=== PATIENT | female | born 1985 | race Caucasian/White ===

== ENCOUNTER 2022-11-28 12:48 | Outpatient (CLI) | payer OTHER, SELFPAY ==
--- NOTE | ~2022-11-28 | MR_ITS ---
EXAMINATION: MR knee LT wo con DATE: 11/28/2022 13:29 INDICATION: Left knee pain TECHNIQUE: Magnetic resonance imaging (MRI) of the left knee was performed without intravenous contra st. Sequences included coronal PD-weighted FSE, coronal PD-weighted FS FSE, sagittal T2-weighted FSE , sagittal PD-weighted FS FSE and axial PD weighted fat saturated FSE. COMPARISON: None. FINDINGS: Medial compartment: Medial meniscus is normal. Articular cartilage is normal. Lateral compartment: Lateral meniscus is normal. Articular cartilage is normal. Patellofemoral compartment: Articular cartilage is normal. Ligaments and tendons: Anterior cruciate ligament is normal. Posterior cruciate ligament appears markedly attenuated and the re is posterior subluxation of the tibia with respect to the femoral condyles consistent with at leas t partial if not complete posterior cruciate ligament tear. There is an intact meniscal femoral ligam ent of [place]. The medial collateral ligament and fibular collateral ligament complex are normal. T he extensor mechanism is normal. The visualized medial and lateral hamstring tendons as well as the i liotibial band are normal. Fluid: Small left knee joint effusion. No loose osteochondral bodies identified. Osseous/other: There is prominent marrow edema in the distal femur centered around a 2.0 cm lytic lesion in the post erior lateral femoral condyle which appears to extend to contact the cortex along the lateral side of the intercondylar notch. The lesion appears to have a narrow zone of transition. No other bone lesio ns identified. No fracture. IMPRESSION: 1. 2 cm lytic lesion in the lateral femoral condyle with prominent surrounding marrow edema. Differen tial would include osteomyelitis/Yaya's abscess or neoplasm either benign or malignant. Recommend f urther evaluation with plain radiographs and postcontrast MRI. Dr. Morocho discussed these findings with Isha the lpn or medical assistant for Dr. Aquino at 2:30 PM. 2. At least partial tear of the posterior cruciate ligament with secondary posterior subluxation of t he tibia with respect to the distal femur. Correlate with physical exam to assess for any degree of r esidual functional integrity. 2. Small right knee joint effusion. Could consider diagnostic arthrocentesis as clinically indicated. Reviewed, dictated and finalized at location A. IMPRESSION: 1. 2 cm lytic lesion in the lateral femoral condyle with prominent surrounding marrow edema. Differential would include osteomyelitis/Yaya's abscess or neop lasm either benign or malignant. Recommend further evaluation with plain radiog raphs and postcontrast MRI. Dr. Morocho discussed these findings with Isha the lpn or medical assistant for Dr. Aquino at 2:30 PM. 2. At least partial tear of the posterior cruciate ligament with secondary post erior subluxation of the tibia with respect to the distal femur. Correlate with physical exam to assess for any degree of residual functional integrity. 2. Small right knee joint effusion. Could consider diagnostic arthrocentesis as clinically indicated.
== END 2022-11-28 12:49 | disposition home or self-care (01) ==
LOC: ANHIMG 12:50
PROVIDERS: PCP Physician Assistant; Visit Provider Physician Assistant
DX: M25.562 Pain in left knee (principal); M89.9 Disorder of bone, unspecified; S83.522A Sprain of posterior cruciate ligament of left knee, initial encounter; M25.462 Effusion, left knee
CPT/HCPCS: 73721